=== PATIENT | male | born 1995 | race Two or more races ===

== ENCOUNTER 2019-03-01 22:29 | Emergency (ER) | payer OTHER ==
[~2019-03-01] VITALS: Ht 167.6 cm; Wt 114.8 kg
[2019-03-02] MEDS ORDERED: LEVAQUIN500 MG PO (05:08)
[2019-03-02] MEDS ORDERED: DOLOGESIC 500-1 EACH PO ×2 (05:08→05:09)
== END 2019-03-02 05:53 | disposition home or self-care (01) ==
LOC: ER 22:29
DX: S80.812A Abrasion, left lower leg, initial encounter (principal); W22.8XXA Striking against or struck by other objects, initial encounter; Y93.89 Activity, other specified; Y92.89 Other specified places as the place of occurrence of the external cause; Y99.8 Other external cause status